=== PATIENT | female | born 1970 ===

== ENCOUNTER → 2023-04-15 15:19 | Outpatient (CLI) | payer BC, SELFPAY ==
--- NOTE | ~2023-04-15 | MR_ITS ---
EXAMINATION: MR ankle RT wo con DATE: 04/15/2023 15:59 INDICATION: Right ankle pain TECHNIQUE: Magnetic resonance imaging (MRI) of the right ankle was performed without intravenous cont rast. Sequences included sagittal, coronal, and axial proton-density weighted fast spin echo without and with fat saturation. COMPARISON: None. FINDINGS: Medial ankle ligaments: Deep and superficial deltoid ligaments as well as the spring ligament are normal. Lateral ankle ligaments: The anterior and posterior inferior tibiofibular ligaments are normal. The calcaneofibular and office bookkeeper ior talofibular ligaments are normal. The anterior talofibular ligament is markedly attenuated likely sequela of chronic sprain. Tendons: Fusiform thickening and increased signal of the Achilles tendon consistent with moderate tendinopathy . There is an intrasubstance tear located possibly 4.5 cm proximal to the calcaneal insertion which i nvolves <20% of the cross-sectional area of the tendon. There is mild peroneal tenosynovitis. The per oneus longus tendon is normal. There is additional moderate tendinopathy and longitudinal split tear of the peroneus brevis tendon centered just distal to the tip of the lateral malleolus. The tibialis anterior and extensor hallucis longus and extensor digitorum longus tendons are normal. There is mild tibialis posterior tenosynovitis. The tibialis posterior, flexor digitorum longus and flexor halluci s longus tendons are normal. Plantar fascia: Small to moderate sized enthesophyte at the calcaneal origin of the otherwise normal-appearing planta r aponeurosis. Bones/other: Bone alignment is normal. No fracture or pathologic marrow replacing process. 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 Fluid: Physiologic amount fluid in the joint space. Multilobulated ganglion cyst arising from the lateral si de of the talonavicular joint which measures 1.5 x 1.0 x 0.9 cm. IMPRESSION: 1. Moderate Achilles tendinosis with mild partial-thickness tear. 2. Moderate tendinopathy and longitudinal split tear of the peroneus brevis tendon. 3. Attenuated anterior talofibular ligament likely sequela of chronic sprain. Reviewed, dictated and finalized at location A. [employer] IMPRESSION: 1. Moderate Achilles tendinosis with mild partial-thickness tear. 2. Moderate tendinopathy and longitudinal split tear of the peroneus brevis ten don. 3. Attenuated anterior talofibular ligament likely sequela of chronic sprain.
== END ==
PROVIDERS: PCP Podiatrist Foot & Ankle Surgery; Visit Provider Podiatrist Foot & Ankle Surgery
DX: S86.011A Strain of right Achilles tendon, initial encounter (principal); M25.571 Pain in right ankle and joints of right foot
CPT/HCPCS: 73721